=== PATIENT | female | born 1980 | race American Indian/Alaskan Native ===

== ENCOUNTER 2017-04-21 23:26 | Emergency (ER) | payer MEDICAID ==
[2017-04-21 23:47] VITALS: BP 149/80
[2017-04-22] MEDS ORDERED: MOTRIN PO ONE ×2 (01:20)
[2017-04-22 01:40] LABS: Bilirubin,Urine NEG (Negative); Blood,Urine NEG (Negative); Ketones,Urine NEG (Negative); Leukocyte Esterase,Urine NEG (Negative); Nitrite,Urine NEG (Negative); Protein,Urine <15 mg/dL mg/dL (Negative); Urobilinogen,Urine < 2.0 mg/dL (<2.0); WBC,Urine < 1.0 /HPF (0.0-6.0)
[2017-04-22 02:17] LABS: Basophils % (Auto) 0.4 % (0.0-1.8); Eosinophils % (Auto) 0.3 % (0.0-4.3); Hematocrit 33.6 % (30.3-42.9); Hemoglobin 10.6 gm/dl (10.1-14.3); Mean Corpuscular HGB Conc 32 % (30-34); Mean Corpuscular Volume 72 fl (79-97); Platelet Count 261 K/mm3 (140-440); Red Blood Count 4.64 M/mm3 (3.65-5.03); Red Cell Distribution Width 17.3 % (13.2-15.2); White Blood Count 10.6 K/mm3 (4.5-11.0)
[2017-04-22 02:22] LABS: Mean Corpuscular Hemoglobin 23 pg (28-32)
[2017-04-22 02:35] LABS: Alanine Aminotransferase 17 units/L (7-56); Albumin 4.6 g/dL (3.9-5); Albumin/Globulin Ratio 1.4 %; Alkaline Phosphatase 51 units/L (35-129); Anion Gap 17 mmol/L; BUN/Creatinine Ratio 11; Blood Urea Nitrogen 9 mg/dL (7-17); Calcium 9.4 mg/dL (8.4-10.2); Carbon Dioxide 24 mmol/L (22-30); Glucose 93 mg/dL (65-100); Lipase 26 units/L (13-60); Sodium 139 mmol/L (137-145)
== END 2017-04-22 01:45 | disposition left against medical advice (07) ==
LOC: ED 23:26
DX: R10.9 Unspecified abdominal pain (principal); Z53.21 Procedure and treatment not carried out due to patient leaving prior to being seen by health care provider
CPT/HCPCS: 36415; 80053; 81001; 83690; 84703; 85025

== ENCOUNTER 2017-05-18 16:47 | Inpatient (IN) | payer MEDICAID ==
[2017-05-18 17:58] LABS: Basophils % (Auto) 0.6 % (0.0-1.8); Eosinophils % (Auto) 0.1 % (0.0-4.3); Hematocrit 34.6 % (30.3-42.9); Hemoglobin 10.9 gm/dl (10.1-14.3); Mean Corpuscular HGB Conc 32 % (30-34); Mean Corpuscular Volume 72 fl (79-97); Platelet Count 265 K/mm3 (140-440); Red Blood Count 4.83 M/mm3 (3.65-5.03); Red Cell Distribution Width 17.5 % (13.2-15.2); White Blood Count 8.7 K/mm3 (4.5-11.0)
[2017-05-18 17:59] LABS: Mean Corpuscular Hemoglobin 23 pg (28-32)
[2017-05-18 18:33] LABS: Mucus,Urine FEW /HPF
[2017-05-18 18:42] LABS: Bilirubin,Urine NEG (Negative); Blood,Urine LG (Negative); Ketones,Urine 20 mg/dL (Negative); Leukocyte Esterase,Urine NEG (Negative); Nitrite,Urine NEG (Negative); Urobilinogen,Urine < 2.0 mg/dL (<2.0)
[2017-05-18] MEDS ORDERED: DILAUDID IV ONE (19:17)
[2017-05-18] MEDS ORDERED: ZOFRAN IV ONE (19:17)
[2017-05-18] MEDS ORDERED: NACL 0.9% 1000 ML 1,000 ML IV ONE ×2 (19:17→23:23)
--- NOTE | 2017-05-18 19:21 | Emergency Department Report ---
ED Female HPI - General Chief complaint: Abdominal Pain Stated complaint: PELVIC PAIN Time Seen by Provider: 05/18/17 19:07 Source: patient, old records reviewed Mode of arrival: Wheelchair Limitations: No Limitations - History of Present Illness Initial comments: 36 year old female with a past medical history a right-sided ectopic requiring right salpingectomy in the past presents to the hospital with complaints of sudden onset left lower quadrant pain. Patient states she had an IUD placed 1- 2 weeks ago. She has sexual intercourse just prior to IUD placement as well as after IUD placement. Patient has had vaginal spotting requiring one panty liner per day since IUD was placed. 2 days ago patient developed left lower quadrant discomfort and therefore her and her fianc removed the IUD. Patient has sudden onset of sharp pain today while shopping has continued vaginal spotting. Symptoms feel similar to previous ectopic. Pain rated moderate to severe in intensity, constant, worse with palpation and movement. No alleviating factors reported. The [employer] doctors are [place] affiliated Patient was here on April 22 for lower abdominal pain. Serum hCG was negative at that time. Patient left before M.D. evaluation - Related Data Allergies Allergy/AdvReac Type Severity Reaction Status Date / Time morphine Allergy Hives Verified 04/22/17 01:06 Penicillins Allergy Hives Verified 04/22/17 01:06 ED Review of Systems ROS: Stated complaint: PELVIC PAIN Other details as noted in HPI Comment: All other systems reviewed and negative Other: Constitutional: No fevers chills Eyes: No eye pain visual changes ENT: No ear pain or throat pain Neck: Denies pain Respiratory: Denies cough wheezing shortness of breath Cardiovascular: Denies chest pain, palpitations, syncope GI: As per HPI : Denies dysuria Musculoskeletal: Pain radiates to lower back Skin: Denies rash, lesions, erythema Neurologic: Denies headache, numbness, weakness Psychiatric: Denies suicidal ideation, hallucinations ED Past Medical Hx - Past Medical History Hx Seizures: Yes - Surgical History Past Surgical History?: No Additional Surgical History: Ectopic /Fallopian tube removal R side - Social History Smoking Status: Never Smoker Substance Use Type: None ED Physical Exam - General Limitations: No Limitations - Other Other exam information: General: No limitations, appears uncomfortable secondary to pain Head exam: Atraumatic, normocephalic Eyes exam: Normal appearance ENT: Moist mucous membrane, normal oropharynx Neck exam: Normal inspection, full range of motion, no meningismus nontender Respiratory exam: Clear to auscultation bilateral, no wheezes, rales, crackles Cardiovascular: Normal rate and rhythm, normal heart sounds Abdomen: Soft, nondistended, left lower quadrant tenderness, no rebound or guarding Extremity: Full range of motion normal inspection no deformity Back: Normal Inspection, full range of motion, no tenderness Neurologic: Alert, oriented x3, cranial nerves intact, no motor or sensory deficit Psychiatric: normal affect, normal mood Skin: Warm, dry, intact ED Course Vital Signs 05/18/17 05/18/17 05/18/17 17:25 19:17 19:30 Temperature 98.4 F Pulse Rate 86 81 Respiratory 22 21 Rate Blood Pressure 114/74 127/85 133/76 O2 Sat by Pulse 100 100 Oximetry 05/18/17 05/18/17 05/18/17 19:42 19:44 19:51 Temperature Pulse Rate Respiratory 20 20 Rate Blood Pressure 129/86 O2 Sat by Pulse 98 100 Oximetry 05/18/17 05/18/17 05/18/17 20:00 20:15 20:30 Temperature Pulse Rate 96 H 88 78 Respiratory 12 14 10 L Rate Blood Pressure 135/84 135/84 130/82 O2 Sat by Pulse 100 100 100 Oximetry 05/18/17 20:45 Temperature Pulse Rate 88 Respiratory 17 Rate Blood Pressure 135/84 O2 Sat by Pulse 100 Oximetry - Reevaluation(s) Reevaluation #1: 05/18/17 20:28 Patient received Dilaudid and Zofran for pain and while he is in normal saline. She does not require RhoGAM since she is Rh+ Reevaluation #2: 05/18/17 21:27 No support the patient developed itching without any signs of rash. Benadryl 50 mg ordered. Toradol ordered. Suspect allergy to Dilaudid given previous history of allergy to morphine - Consultations Consultation #1: 05/18/17 20:[address] Jarrett [employer] operations man. Will return to the hospital to take patient to the OR. This was discussed case with patient. ED Medical Decision Making - Lab Data Result diagrams: 05/18/17 17:39 Lab Results 05/18/17 05/18/17 05/18/17 Range/Units 17:39 17:39 17:42 WBC 8.7 (4.5-11.0) K/mm3 RBC 4.83 (3.65-5.03) M/mm3 Hgb 10.9 (10.1-14.3) gm/dl Hct 34.6 (30.3-42.9) % MCV 72 L (79-97) fl MCH 23 L (28-32) pg MCHC 32 (30-34) % RDW 17.5 H (13.2-15.2) % Plt Count 265 (140-440) K/mm3 Lymph % (Auto) 17.2 (13.4-35.0) % [place] % (Auto) 6.2 (0.0-7.3) % Eos % (Auto) 0.1 (0.0-4.3) % Baso % (Auto) 0.6 (0.0-1.8) % Lymph # 1.5 (1.2-5.4) K/mm3 [place] # 0.5 (0.0-0.8) K/mm3 Eos # 0.0 (0.0-0.4) K/mm3 Baso # 0.1 (0.0-0.1) K/mm3 Seg Neutrophils % 75.9 H (40.0-70.0) % Seg Neutrophils # 6.6 (1.8-7.7) K/mm3 HCG, Quant 9404 H (0-4) mIU/mL Urine Color (Yellow) Urine Turbidity (Clear) Urine pH (5.0-7.0) Ur Specific [place] (1.003-1.030) Urine Protein (Negative) mg/dL Urine Glucose (UA) (Negative) mg/dL Urine Ketones (Negative) mg/dL Urine Blood (Negative) Urine Nitrite (Negative) Ur Reducing Substances Urine Bilirubin (Negative) Urine Ictotest Urine Urobilinogen (<2.0) mg/dL Ur Leukocyte Esterase (Negative) Urine WBC (Auto) (0.0-6.0) /HPF Urine RBC (Auto) (0.0-6.0) /HPF U Epithel Cells (Auto) (0-13.0) /HPF Urine Mucus /HPF Blood Type B POSITIVE Antibody Screen Negative 05/18/17 Range/Units 18:00 WBC (4.5-11.0) K/mm3 RBC (3.65-5.03) M/mm3 Hgb (10.1-14.3) gm/dl Hct (30.3-42.9) % MCV (79-97) fl MCH (28-32) pg MCHC (30-34) % RDW (13.2-15.2) % Plt Count (140-440) K/mm3 Lymph % (Auto) (13.4-35.0) % [place] % (Auto) (0.0-7.3) % Eos % (Auto) (0.0-4.3) % Baso % (Auto) (0.0-1.8) % Lymph # (1.2-5.4) K/mm3 [place] # (0.0-0.8) K/mm3 Eos # (0.0-0.4) K/mm3 Baso # (0.0-0.1) K/mm3 Seg Neutrophils % (40.0-70.0) % Seg Neutrophils # (1.8-7.7) K/mm3 HCG, Quant (0-4) mIU/mL Urine Color Yellow (Yellow) Urine Turbidity Clear (Clear) Urine pH 6.0 (5.0-7.0) Ur Specific [place] 1.014 (1.003-1.030) Urine Protein 30 mg/dl (Negative) mg/dL Urine Glucose (UA) Neg (Negative) mg/dL Urine Ketones 20 (Negative) mg/dL Urine Blood Lg (Negative) Urine Nitrite Neg (Negative) Ur Reducing Substances Not Reportable Urine Bilirubin Neg (Negative) Urine Ictotest Not Reportable Urine Urobilinogen < 2.0 (<2.0) mg/dL Ur Leukocyte Esterase Neg (Negative) Urine WBC (Auto) 4.0 (0.0-6.0) /HPF Urine RBC (Auto) 14.0 (0.0-6.0) /HPF U Epithel Cells (Auto) 1.0 (0-13.0) /HPF Urine Mucus Few /HPF Blood Type Antibody Screen - Radiology Data Radiology results: report reviewed Transvaginal /pelvic ultrasound: Left adnexal ectopic 5 weeks 6 days with heart. Trace free fluid in cul-de-sac - Medical Decision Making Patient requires admission to the hospital in OR treatment for left sided ectopic . 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 Mezzier - Differential Diagnosis ectopic, ruptured ectopic, , threatened miscarriage, miscarriage Critical Care Time: No Critical care attestation.: If time is entered above; I have spent that time in minutes in the direct care of this critically ill patient, excluding procedure time. ED Disposition Clinical Impression: Ectopic of ovary Qualifiers: Intrauterine status: without intrauterine Laterality: left Qualified Code(s): O00.202 - Left ovarian without intrauterine Disposition: OP ADMIT IP TO THIS HOSP Is pt being admited?: Yes Condition: Stable Referrals: PRIMARY CARE, [Primary Care Provider] - 3-5 Days Time of Disposition: 20:29 (DR Jarrett/[employer] TECHNICIAN)
--- NOTE | 2017-05-18 19:30 | Ultrasound Report ---
FINAL REPORT EXAM: US OB TRANSVAGINAL HISTORY: Pelvic Pain , , LMP 05/10/2017 TECHNIQUE: Transvesical and endovaginal obstetrical sonographic imaging Comparison: None FINDINGS: Images demonstrate uterus to measure 12.1 x 7.7 x 7 centimeters. Endometrial stripe is thickened at at least 1.7 centimeters. There is no intrauterine gestation identified. Right ovary measures 2.2 x 1.4 x 1.6 centimeters with normal color flow and unremarkable appearance. Left ovary measures 3.1 x 1.8 x 2.1 centimeters with normal color flow and an adjacent ectopic . There is a gestational sac and pole in the left adnexal. heart rate measures 120 beats per minute. By crown-rump length, estimated gestational age is 5 weeks 6 days. A yolk sac is identified. There is trace free fluid identified. IMPRESSION: Critical result. Findings called to and discussed with referring clinician, Dr. Corado, on 05/18/2017 at 1923 hours. Live left adnexal ectopic at 5 weeks 6 days by crown-rump length. Normal appearing ovaries. Trace free cul-de-sac fluid.
--- NOTE | 2017-05-18 19:33 | Ultrasound Report ---
FINAL REPORT EXAM: US OB < = 14 WEEKS FETUS HISTORY: Pelvic Pain TECHNIQUE: Transvesical and endovaginal obstetrical sonographic imaging Comparison: None FINDINGS: Images demonstrate uterus to measure 12.1 x 7.7 x 7 centimeters. Endometrial stripe is thickened at at least 1.7 centimeters. There is no intrauterine gestation identified. Right ovary measures 2.2 x 1.4 x 1.6 centimeters with normal color flow and unremarkable appearance. Left ovary measures 3.1 x 1.8 x 2.1 centimeters with normal color flow and an adjacent ectopic . There is a gestational sac and pole in the left adnexal. heart rate measures 120 beats per minute. By crown-rump length, estimated gestational age is 5 weeks 6 days. A yolk sac is identified. There is trace free fluid identified. IMPRESSION: Critical result. Findings called to and discussed with referring clinician, Dr. Corado, on 05/18/2017 at 1923 hours. Live left adnexal ectopic at 5 weeks 6 days by crown-rump length. Normal appearing ovaries. Trace free cul-de-sac fluid.
[2017-05-18] MEDS ORDERED: TORADOL IV ONE (21:18)
[2017-05-18] MEDS ORDERED: BENADRYL IV ONE (21:18)
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
[2017-05-18] MEDS ORDERED: GARAMYCIN IV SCH (22:45)
[2017-05-18] MEDS ORDERED: CLEOCIN 600 MG/50 mL 600 MG/50 ML BAG IV NR (23:00)
[2017-05-18] MEDS ORDERED: MARCAINE 0.5% 30 ML INFILTRATI ONE (23:00)
[2017-05-18] MEDS ORDERED: NACL 0.9% 1000 ML 1,000 ML ONE (23:02)
[2017-05-18] MEDS ORDERED: DIPRIVAN 10 MG/ML IV ONE (23:13)
[2017-05-18] MEDS ORDERED: DILAUDID ONE (23:13)
[2017-05-18] MEDS ORDERED: XYLOCAINE MPF 2% ONE (23:14)
[2017-05-18] MEDS ORDERED: MARCAINE 0.5% INFILTRATI ONE (23:20)
[2017-05-18] MEDS ORDERED: NACL 0.9% IR ONE ×2 (23:20)
[2017-05-18] MEDS ORDERED: VERSED ONE (23:21)
--- NOTE | 2017-05-18 23:21 | Anesthesia Day of Surgery ---
Anesthesia Day of Surgery - Day of Surgery Patient Examined: Yes Patient H&P Reviewed: Yes Patient is NPO: Yes
--- NOTE | 2017-05-18 23:21 | Anesthesia Consultation ---
Anesthesia Consult and Med Hx Date of service: 05/18/17 - Airway Anesthetic Teeth Evaluation: Good ROM Head & Neck: Adequate Mental/Hyoid Distance: Adequate Mallampati Class: Class II Intubation Access Assessment: Probably Good - Pulmonary Exam CTA: Yes - Cardiac Exam Cardiac Exam: RRR - Pre-Operative Health Status ASA Pre-Surgery Classification: ASA2 Proposed Anesthetic Plan: General - Pulmonary Hx Smoking: No Hx Asthma: No - Cardiovascular System Hx Hypertension: No - Central Nervous System Hx Seizures: Yes - Endocrine Hx Non-Insulin Dependent Diabetes: No
[2017-05-18] MEDS ORDERED: TORADOL IV PRN (23:22)
[2017-05-18] MEDS ORDERED: SUBLIMAZE IV PRN (23:22)
[2017-05-18] MEDS ORDERED: PEPCID IV ONE (23:22)
[2017-05-18] MEDS ORDERED: ZOFRAN ONE (23:30)
[2017-05-18] MEDS ORDERED: SUBLIMAZE ONE (23:34)
[2017-05-18] MEDS ORDERED: ZEMURON IV ONE (23:34)
[2017-05-19] MEDS ORDERED: GARAMYCIN/NS 120MG/100ML 120 MG/100 ML BAG IV ONE (00:05)
[2017-05-19] MEDS ORDERED: NACL 0.9% 1000 ML 1,000 ML ONE (00:36)
[2017-05-19] MEDS ORDERED: ZOFRAN ONE (00:39)
[2017-05-19] MEDS ORDERED: REGLAN PO PRN (01:07)
[2017-05-19] MEDS ORDERED: TYLENOL PO PRN (01:07)
--- NOTE | 2017-05-19 01:16 | Operative Report ---
Operative Report Operative Report: Date of procedure: 05/19/2017 Pre-operative diagnosis: Left ectopic Post-operative diagnosis: Same was hemoperitoneum Procedure name(s): Left laparoscopic salpingectomy Diagnostic laparoscopy Surgeon: Dr. Yuan date Director Reactor Projects: PIPE Anesthesia: Gen. endotracheal anesthesia EBL: 200 mL of hemoperitoneum evacuated from abdomen Urine output: 200 mL of clear urine out at the beginning of the procedure via straight catheterization Fluids: 1200 mL Findings: What appeared to be scarring on the surface of the uterus Normal ovaries bilaterally Approximately 200 mL of hemoperitoneum Left adnexal mass encompassing the early the entire left fallopian tube extending from the fimbriated and to the proximal portion near uterus Absent right fallopian tube Indications: Patient presented with left pelvic pain for several days. Patient with previous history of right ectopic and status post right salpingectomy. Patient stated that pain was similar. Evaluation via sonogram revealed left ectopic approximately 5 weeks and 6/7 days with cardiac activity noted. Minimal fluid was also noted on sonogram. Decision was made to proceed with operative treatment of ectopic as patient did not make criteria for treatment with methotrexate. All risks benefits and alternatives were discussed with the patient consents were signed and placed on the chart. Procedure: Patient was taken to the operating room where she was then placed in general endotracheal anesthesia in dorsal lithotomy position. Patient's legs was then placed in the Emmanuel stirrups. Patient was then prepped and draped in normal sterile fashion. After timeout had been performed straight catheterization was performed. Sterile speculum was placed inside of the vagina. Anterior lip of the cervix was grasped with a tenaculum and the uterus was sounded to approximately 8 cm. The uterus was dilated to allow the passage of the HUMI uterine manipulator. Attention was then turned to the umbilicus and which an incision was made to allow passage of a 5 mm trocar. The 5 mm trocar was placed under direct visualization with the laparoscope. 2 other ports were placed under direct visualization a 5 mm and an additional 8 mm trocar was pulled placed. The LigaSure device was used to cut and cauterize the left ectopic and left salpingectomy was performed.. The 8 mm incision was then extended to a lower passage of the 12 mm trocar. The Endo Catch bag was then placed at this time specimens placed inside the Endo Catch bag. Specimen was removed from the abdomen. The pelvis was then copiously irrigated with all clots and debris removed from the pelvis. Excellent hemostasis was noted. The skin was closed with 2-0 Vicryl in the fascial layer of the 12 mm incision. And 4-0 Monocryl and the skin layer of the 12 mm incision. The other 25 mm incisions were reapproximated using 4-0 Monocryl. Surgical glue was placed on all incisions to reapproximate the skin edges. Excellent hemostasis was noted. Marcaine without epi was injected in all incisions. Attention was then turned to the vagina in which the HUMI manipulator was removed without difficulty. Minimal bleeding was noted. Patient tolerated procedure well sponge lap and needle counts were all correct 2. Patient was taken to the recovery room awake and in stable condition.
[2017-05-19] MEDS ORDERED: LACTATED RINGERS 1,000 ML IV SCH (02:00)
[2017-05-19] MEDS: CLEOCIN 600 MG/50 mL 600 MG/50 ML BAG IV SCH ×2 (02:42→11:05)
[2017-05-19] MEDS: NORCO 5/325 PO PRN ×3 (02:42→18:16)
[2017-05-19] MEDS: TORADOL IV SCH ×2 (05:16→14:00)
[2017-05-19] MEDS: GARAMYCIN/NS 80 MG/100 ML 100 ML IV SCH ×2 (08:16→15:55)
[2017-05-19 12:41] LABS: Hemoglobin 9.6 gm/dl (10.1-14.3)
[2017-05-19] MEDS ORDERED: TORADOL PO PRN (18:57)
--- NOTE | 2017-05-19 19:03 | Event Note ---
Date: 05/19/17 Patient lying in bed with complaints of postop pain. Discuss of her adequate hematocrit resulted at 30%. Patient states she desires not to take narcotic discussed makes her dizzy. We'll switch patient to be up Toradol. Discussed patient on normal postoperative pain. Patient states in her head she should stay in hospital until she does not have any more pain. Discuss with patient that she will be discharge with some pain have adequate pain medicine at home. Patient without any nausea. Patient ate regular diet and was prepared by her significant other. All this information given to patient
--- NOTE | 2017-05-19 22:14 | Discharge Summary ---
Providers - Providers Date of Admission: 05/19/17 08:08 Date of discharge: 05/20/17 Attending physician: CHUNG LIM Primary care physician: [employer] Hospitalization Reason for admission: ectopic Condition: Good Pertinent studies: Pelvic ultrasound Procedures: Operative laparoscopy with left salpingectomy Hospital course: Please see H&P for details. Patient underwent the operative eye laparoscopy with left salpingectomy without complications.. Her post operative course was benign she was afebrile throughout. Patient postoperative day hematocrit was in an acceptable range. Patient had no orthostatic symptoms. Patient was tolerating regular diet and voiding without difficulty at time of discharge. Patient incision was healing well without evidence of infection. Disposition: DC-01 TO HOME OR SELFCARE - Discharge Diagnoses (1) Ectopic without intrauterine Status: Acute Qualifiers: Location of ectopic : tubal Laterality: left Qualified Code(s): O00.102 - Left tubal without intrauterine Core Measure Documentation - Palliative Care Palliative Care/ Comfort Measures: Not Applicable - Core Measures Any of the following diagnoses?: none Exam - Constitutional Vitals: Temp Pulse Resp BP Pulse Ox 98.8 F 91 H 20 103/56 100 05/19/17 16:39 05/19/17 16:39 05/19/17 16:39 05/19/17 16:39 05/19/17 08:09 General appearance: Present: no acute distress - Respiratory Respiratory effort: normal - Cardiovascular Rhythm: regular - Extremities Extremities: no ischemia Peripheral Pulses: abnormal - Abdominal General gastrointestinal: Present: soft, tender (appropriately), distended Female genitourinary: Present: deferred - Integumentary Integumentary: Present: clear, warm, dry - Psychiatric Psychiatric: appropriate mood/affect, intact judgment & insight Plan Diet: regular Wound: open to air Additional Instructions: Patient office for fever chills nausea vomiting or pain uncontrolled by pain relief. Patient call and make an appointment in 1 week follow-up Follow up with: PRIMARY CARE, [Primary Care Provider] - 3-5 Days Prescriptions: Ketorolac [Toradol] 10 mg PO Q6H PRN #30 tablet PRN Reason: Pain
[2017-05-19] MEDS: MOTRIN PO PRN (22:15)
[2017-05-20] MEDS: MOTRIN PO PRN (08:19)
[2017-05-20 09:18] VITALS: BP 117/70
== END 2017-05-20 12:10 | disposition home or self-care (01) | DRG 777 ==
LOC: ED 16:47 → OR 23:40 → OB 05-19 01:07 → OBSVTOIN 05-19 08:08
PROVIDERS: ADMIT Obstetrics & Gynecology; ATTEND Obstetrics & Gynecology
PROC: 10T24ZZ Resection of Products of Conception, Ectopic, Percutaneous Endoscopic Approach (ICD-10-PCS; principal; 2017-05-19)
PROC: 0UT64ZZ Resection of Left Fallopian Tube, Percutaneous Endoscopic Approach (ICD-10-PCS; 2017-05-19)
DX: O00.102 Left tubal pregnancy without intrauterine pregnancy (principal); K66.1 Hemoperitoneum; Z88.5 Allergy status to narcotic agent; Z88.0 Allergy status to penicillin; Z90.79 Acquired absence of other genital organ(s); Z88.8 Allergy status to other drugs, medicaments and biological substances
CPT/HCPCS: 36415; 76801; 76817; 81001; 84702; 85014; 85018; 85025; 86850; 86900; 86901; 88305; 96361; 96374; 96375; A4217; J1170; J1200; J1580; J1885; J2250; J2405; J2704; J3010; J7030; J7120

== ENCOUNTER 2017-08-05 00:26 | Emergency (ER) | payer MEDICAID ==
[2017-08-05 01:03] VITALS: BP 110/66
[2017-08-05 01:57] LABS: Basophils % (Auto) 0.5 % (0.0-1.8); Eosinophils # (Auto) 0.1 K/mm3 (0.0-0.4); Eosinophils % (Auto) 0.8 % (0.0-4.3); Hematocrit 32.4 % (30.3-42.9); Hemoglobin 10.3 gm/dl (10.1-14.3); Lymphocytes # (Auto) 2.7 K/mm3 (1.2-5.4); Lymphocytes % (Auto) 28.7 % (13.4-35.0); Mean Corpuscular HGB Conc 32 % (30-34); Monocytes # (Auto) 0.8 K/mm3 (0.0-0.8); Monocytes % (Auto) 8.2 % (0.0-7.3); Platelet Count 249 K/mm3 (140-440); Red Blood Count 4.68 M/mm3 (3.65-5.03); Red Cell Distribution Width 15.9 % (13.2-15.2)
[2017-08-05 02:00] LABS: Alanine Aminotransferase 15 units/L (7-56); Albumin 4.3 g/dL (3.9-5); BUN/Creatinine Ratio 9; Blood Urea Nitrogen 8 mg/dL (7-17); Calcium 9.8 mg/dL (8.4-10.2); Hemolysis Index 1; Lipase 28 units/L (13-60)
[2017-08-05 02:03] LABS: Mean Corpuscular Hemoglobin 22 pg (28-32); Mean Corpuscular Volume 69 fl (79-97)
[2017-08-05 02:06] LABS: Bilirubin,Urine NEG (Negative); Blood,Urine NEG (Negative); Color,Urine Red (Yellow); Nitrite,Urine NEG (Negative); Protein,Urine <15 mg/dL mg/dL (Negative); Urobilinogen,Urine < 2.0 mg/dL (<2.0); WBC,Urine < 1.0 /HPF (0.0-6.0)
[2017-08-05] MEDS ORDERED: ASPIRIN ONE (07:26)
== END 2017-08-05 05:55 | disposition left against medical advice (07) ==
LOC: ED 00:26
DX: R10.9 Unspecified abdominal pain (principal); Z53.21 Procedure and treatment not carried out due to patient leaving prior to being seen by health care provider
CPT/HCPCS: 36415; 80053; 81001; 83690; 84703; 85025

== ENCOUNTER 2019-11-18 18:06 | Emergency (ER) | payer MEDICAID, MEDICARE ==
[2019-11-18] MEDS ORDERED: KETOROLAC 30 MG/1 ML INJ IV ONE (18:50)
--- NOTE | 2019-11-18 18:52 | Emergency Department Report ---
ED Chest Pain HPI - General Chief Complaint: Chest Pain Stated Complaint: CHEST PAIN Time Seen by Provider: 11/18/19 18:35 Source: patient Mode of arrival: Stretcher Limitations: No Limitations - History of Present Illness Initial Comments: 38-year-old -[place] female presents to the emergency department with a complaint of a sharp pain in the left chest/left breast that started just prior to presentation. Patient says that she began feeling very warm and turned up her air conditioning. She then felt nauseated but did not vomit and then had an upset stomach with an episode of diarrhea. However the chest pain remained constant throughout these other symptoms. She denies any shortness of breath, fever. She has not taken anything for symptoms prior to presentation. No recent travel or sick contacts at home. She has not taken anything for her symptoms prior to presentation. She has a past medical history of seizures and previous fibroids. Severity scale (0 -10): 10 - Related Data Previous Rx's Medication Instructions Recorded Last Taken Type Ketorolac [Toradol] 10 mg PO Q6H PRN #30 tablet 05/19/17 Unknown Rx Ibuprofen [Motrin 600 MG tab] 600 mg PO Q8H PRN #20 tablet 11/18/19 Unknown Rx Allergies Allergy/AdvReac Type Severity Reaction Status Date / Time hydromorphone [From Dilaudid] Allergy Itching Verified 05/18/17 22:26 morphine Allergy Hives Verified 04/22/17 01:06 Penicillins Allergy Hives Verified 04/22/17 01:06 Heart Score - HEART Score History: Slightly suspicious EKG: Normal Age: < 45 Risk factors: No known risk factors Troponin: < normal limit HEART Score: 0 - Critical Actions Critical Actions: 0-3 pts:0.9-1.7%risk of adverse cardiac event.Candidate for catherine tuttle ED Review of Systems ROS: Stated complaint: CHEST PAIN Other details as noted in HPI Comment: All other systems reviewed and negative Constitutional: denies: chills, fever Eyes: denies: eye pain, vision change ENT: denies: ear pain, throat pain Respiratory: denies: cough, shortness of breath Cardiovascular: chest pain. denies: palpitations Gastrointestinal: nausea, diarrhea. denies: vomiting Genitourinary: denies: dysuria, discharge Musculoskeletal: denies: back pain, arthralgia Skin: denies: rash, lesions Neurological: denies: headache, weakness ED Past Medical Hx - Past Medical History Previous Medical History?: Yes Hx Hypertension: No Hx Congestive Heart Failure: No Hx Diabetes: No Hx Seizures: Yes Hx Asthma: No Hx COPD: No - Surgical History Past Surgical History?: No Additional Surgical History: Ectopic /Fallopian tube removal R side - Social History Smoking Status: Never Smoker Substance Use Type: None - Medications Home Medications: Home Medications Medication Instructions Recorded Confirmed Last Taken Type Ketorolac [Toradol] 10 mg PO Q6H PRN #30 tablet 05/19/17 Unknown Rx Ibuprofen [Motrin 600 MG tab] 600 mg PO Q8H PRN #20 tablet 11/18/19 Unknown Rx ED Physical Exam - General Limitations: No Limitations - Other Other exam information: GENERAL: The patient is well-developed well-nourished. HENT: Normocephalic. Atraumatic. Patient has moist mucous membranes. EYES: Extraocular motions are intact. NECK: Supple. Trachea is midline. CHEST/LUNGS: Clear to auscultation. There is no respiratory distress noted. Chest pain is not reproducible to palpation of the chest wall. HEART/CARDIOVASCULAR: Regular. There is no tachycardia. There is no murmur. ABDOMEN: Abdomen is soft, nontender. Patient has normal bowel sounds. SKIN: Skin is warm and dry. NEURO: The patient is awake, alert, and oriented. The patient is cooperative. The patient has no focal neurologic deficits. Normal speech. MUSCULOSKELETAL: There is no tenderness or deformity. There is no limitation range of motion. There is no evidence of acute injury. ED Course Vital Signs 11/18/19 11/18/19 18:29 22:04 Temperature 97.6 F Pulse Rate 96 H 83 Respiratory 16 19 Rate Blood Pressure 147/84 127/77 [Right] O2 Sat by Pulse 100 100 Oximetry - Reevaluation(s) Reevaluation #1: 11/18/19 19:55 I did a chest wall/breast examination with nurse Priscila at bedside for assistance and passenger brakeman. MARQUES score - Marques Score Age > 65: (0) No Aspirin use within the Past 7 Days: (0) No 3 or more CAD Risk Factors: (0) No 2 or more Angina events in past 24 hrs: (0) No Known CAD with more than 50% Stenosis: (0) No Elevated Cardiac Markers: (0) No ST Deviation Greater than 0.5mm: (0) No MARQUES Score: 0 ED Medical Decision Making - Lab Data Result diagrams: 11/18/19 18:40 11/18/19 18:40 - EKG Data -: EKG Interpreted by Me EKG shows normal: sinus rhythm, axis, intervals, QRS complexes, ST-T waves Rate: normal - EKG Data When compared to previous EKG there are: previous EKG unavailable Interpretation: normal EKG - Radiology Data Radiology results: report reviewed, image reviewed interpreted by me: Chest x-ray does not show any acute process. There are no pleural effusions, obvious pneumonia and there is no pneumothorax. CTA CHEST WITH IV CONTRAST INDICATION: Chest pain. TECHNIQUE: Axial CT images we re obtained through the chest after injection of 100 mL Omnipaque 350 IV contrast. 3 plane MIP reconstructions were produced. All CT scans at this location are performed using CT dose reduction for ALARA by means of automated exposure control. COMPARISON: None available. FINDINGS: Pulmonary Arteries: No pulmonary emboli. Lungs: No significant abnormality. Trachea and Bronchi: No significant abnormality. Heart and Pericardium: No significant abnormality. Vasculature: No significant abnormality. Lymphatics: No lymphadenopathy. Additional Findings: None. Upper Abdomen: No acute findings. Skeletal Structures: No significant osseous abnormality. IMPRESSION: 1. No CT evidence for pulmonary embolism. 2. No acute findings. - Medical Decision Making This patient presents to the emergency department with some acute left-sided chest pain, over the left breast, that started earlier this evening. On examination her heart and lungs are normal to auscultation. I was unable to reproduce the patient's pain to palpation but there was no obvious deformity including any signs of any breast abscess, any crepitus or cellulitis. An EKG was done that does not show any morphology consistent with ST elevation [place] or any dysrhythmia. Chest x-ray did not show any pneumonia, pleural effusions, pneumothorax, focal consolidation, or any other acute process. Patient's labs have been unremarkable including negative troponins x2. Patient did have a CT angiography of the chest performed secondary to her significant level of discomfort but it resulted as no evidence for pulmonary embolism or any other acute findings. Patient was given a dose of IV analgesia with great improvement of her discomfort. Her vital signs been stable throughout her ED course. The patient has a low heart and MARQUES score. For all these reasons the patient will be discharged home. Her contact information has been sent to the [facility] and someone from their office should be contacting her shortly for close outpatient follow-up as part of our lower risk chest pain protocol. The patient will return to the emergency department with any worsening of her symptoms or any acute distress. Critical Care Time: No Critical care attestation.: If time is entered above; I have spent that time in minutes in the direct care of this critically ill patient, excluding procedure time. ED Disposition Clinical Impression: Chest pain Qualifiers: Chest pain type: unspecified Qualified Code(s): R07.9 - Chest pain, unspecified Disposition: TO HOME OR SELFCARE Is pt being admited?: No Condition: Stable Instructions: Chest Pain (ED) Additional Instructions: I am sending your contact information to [facility], a local cardiology group, and someone from their office should be contacting you shortly for close outpatient follow-up. Return to the emergency department with any worsening of your symptoms or any acute distress. Prescriptions: Ibuprofen [Motrin 600 MG tab] 600 mg PO Q8H PRN #20 tablet PRN Reason: Pain Referrals: PRIMARY CARE, [Primary Care Provider] - 2-3 Days JOSE MUSE MD [Staff Physician] - 2-3 Days Time of Disposition: 22:32
--- NOTE | 2019-11-18 19:13 | XRay Report ---
CHEST 1 VIEW 11/18/2019 6:49 PM INDICATION / CLINICAL INFORMATION: Chest pain. COMPARISON: None available. FINDINGS: SUPPORT DEVICES: None. HEART / MEDIASTINUM: Normal heart size. Atherosclerosis in the thoracic aorta. LUNGS / PLEURA: No significant pulmonary or pleural abnormality. No pneumothorax. ADDITIONAL FINDINGS: No significant additional findings. IMPRESSION: 1. No acute findings. Signer Name: Nicola Mistry MD Signed: 11/18/2019 7:09 PM Workstation Name: [id number]
[2019-11-18 19:38] LABS: Basophils % (Auto) 0.4 % (0.0-1.8); Eosinophils % (Auto) 0.4 % (0.0-4.3); Hematocrit 37.4 % (30.3-42.9); Hemoglobin 11.7 gm/dl (10.1-14.3); INR 0.99 (0.87-1.13); Lymphocytes # (Auto) 1.9 K/mm3 (1.2-5.4); Lymphocytes % (Auto) 15.1 % (13.4-35.0); Mean Corpuscular HGB Conc 31 % (30-34); Mean Corpuscular Volume 77 fl (79-97); Monocytes # (Auto) 0.7 K/mm3 (0.0-0.8); Monocytes % (Auto) 5.2 % (0.0-7.3); Platelet Count 263 K/mm3 (140-440); Red Blood Count 4.84 M/mm3 (3.65-5.03); Red Cell Distribution Width 14.8 % (13.2-15.2)
[2019-11-18 19:42] LABS: Bacteria,Urine 1+ /HPF (Negative); Bilirubin,Urine NEG (Negative); Blood,Urine NEG (Negative); Color,Urine Straw (Yellow); Mucus,Urine FEW /HPF; Protein,Urine <15 mg/dL mg/dL (Negative); Urobilinogen,Urine < 2.0 mg/dL (<2.0)
[2019-11-18 19:46] LABS: BUN/Creatinine Ratio 14; Blood Urea Nitrogen 11 mg/dL (7-17); Calcium 9.5 mg/dL (8.4-10.2); Hemolysis Index 5
[2019-11-18] MEDS ORDERED: ONDANSETRON 4 MG/2 ML INJ IV ONE (19:49)
[2019-11-18] MEDS ORDERED: fentaNYL 100 MCG/2 ML INJ IV ONE (19:49)
[2019-11-18] MEDS ORDERED: diphenhydrAMINE 50 MG/ML VIAL IV ONE (19:49)
[2019-11-18] MEDS ORDERED: fentaNYL 100 MCG/2 ML INJ ONE (19:52)
[2019-11-18] MEDS ORDERED: diphenhydrAMINE 50 MG/ML VIAL ONE (19:52)
[2019-11-18] MEDS ORDERED: ONDANSETRON 4 MG/2 ML INJ ONE (19:52)
--- NOTE | 2019-11-18 20:51 | Cat Scan Report ---
CTA CHEST WITH IV CONTRAST INDICATION: Chest pain. TECHNIQUE: Axial CT images were obtained through the chest after injection of 100 mL Omnipaque 350 IV contrast. 3 plane MIP reconstructions were produced. All CT scans at this location are performed using CT dose reduction for ALARA by means of automated exposure control. COMPARISON: None available. FINDINGS: Pulmonary Arteries: No pulmonary emboli. Lungs: No significant abnormality. Trachea and Bronchi: No significant abnormality. Heart and Pericardium: No significant abnormality. Vasculature: No significant abnormality. Lymphatics: No lymphadenopathy. Additional Findings: None. Upper Abdomen: No acute findings. Skeletal Structures: No significant osseous abnormality. IMPRESSION: 1. No CT evidence for pulmonary embolism. 2. No acute findings. Signer Name: Nicola Mistry MD Signed: 11/18/2019 8:47 PM Workstation Name: [id number]
[2019-11-18 22:05] VITALS: BP 127/77
== END 2019-11-18 23:54 | disposition home or self-care (01) ==
LOC: ED 18:06
DX: R07.9 Chest pain, unspecified (principal); Z79.899 Other long term (current) drug therapy; Z88.0 Allergy status to penicillin; Z88.6 Allergy status to analgesic agent; Z88.8 Allergy status to other drugs, medicaments and biological substances; Z86.69 Personal history of other diseases of the nervous system and sense organs; Z98.890 Other specified postprocedural states
CPT/HCPCS: 36415; 71045; 71275; 80048; 81001; 84484; 85025; 85379; 85610; 93005; 96374; 96375; 99285; J1200; J1885; J2405; J3010; Q9967

== ENCOUNTER 2019-12-21 00:44 | Emergency (ER) | payer MEDICARE ==
[2019-12-21] MEDS ORDERED: fentaNYL 100 MCG/2 ML INJ IV ONE (02:49)
--- NOTE | 2019-12-21 02:55 | Emergency Department Report ---
ED Chest Pain HPI - General Chief Complaint: Chest Pain Stated Complaint: CHEST PAIN Time Seen by Provider: 12/21/19 02:43 Source: patient, EMS Mode of arrival: Wheelchair Limitations: No Limitations - History of Present Illness Initial Comments: 39 yo F with history of seizure disorder presents to ED with complaint of chest pain. Patient states pain is left-sided, nonradiating, sharp in nature. Onset of pain while patient was laying in bed watching TV. Patient denies any shortness of breath, fever, cough, leg pain or swelling. Patient states she was here for the exact same pain 1 month ago. At that time, patient had a CTA chest that was negative for PE. MD Complaint: chest pain -: During the night Onset: during rest Pain Location: left chest Pain Radiation: none Severity: severe Quality: sharp Consistency: constant Improves With: nothing Worsens With: nothing re: nausea. denies: vomting, diaphoresis, dyspnea Other Symptoms: denies: cough, fever, leg swelling - Related Data Previous Rx's Medication Instructions Recorded Last Taken Type Ketorolac [Toradol] 10 mg PO Q6H PRN #30 tablet 05/19/17 Unknown Rx Ibuprofen [Motrin 600 MG tab] 600 mg PO Q8H PRN #20 tablet 11/18/19 Unknown Rx Allergies Allergy/AdvReac Type Severity Reaction Status Date / Time acetaminophen [From Percocet] Allergy Unknown Verified 12/21/19 01:17 hydromorphone [From Dilaudid] Allergy Itching Verified 05/18/17 22:26 morphine Allergy Hives Verified 04/22/17 01:06 oxycodone [From Percocet] Allergy Unknown Verified 12/21/19 01:17 Penicillins Allergy Hives Verified 04/22/17 01:06 Heart Score - HEART Score History: Slightly suspicious EKG: Normal Age: < 45 Risk factors: No known risk factors Troponin: < normal limit HEART Score: 0 ED Review of Systems ROS: Stated complaint: CHEST PAIN Other details as noted in HPI Comment: All other systems reviewed and negative Constitutional: denies: chills, fever Respiratory: denies: cough, shortness of breath Cardiovascular: chest pain Gastrointestinal: nausea. denies: vomiting Musculoskeletal: other (denies leg pain or swelling) ED Past Medical Hx - Past Medical History Previous Medical History?: Yes Hx Hypertension: No Hx Congestive Heart Failure: No Hx Diabetes: No Hx Seizures: Yes Hx Asthma: No Hx COPD: No - Surgical History Past Surgical History?: No Additional Surgical History: Ectopic /Fallopian tube removal R side - Social History Smoking Status: Never Smoker Substance Use Type: None - Medications Home Medications: Home Medications Medication Instructions Recorded Confirmed Last Taken Type Ketorolac [Toradol] 10 mg PO Q6H PRN #30 tablet 05/19/17 Unknown Rx Ibuprofen [Motrin 600 MG tab] 600 mg PO Q8H PRN #20 tablet 11/18/19 Unknown Rx ED Physical Exam - General Limitations: No Limitations General appearance: alert, in no apparent distress - Head Head exam: Present: atraumatic, normocephalic - Eye Eye exam: Present: normal appearance, EOMI - ENT ENT exam: Present: mucous membranes moist - Neck Neck exam: Present: normal inspection - Respiratory Respiratory exam: Present: normal lung sounds bilaterally. Absent: respiratory distress, chest wall tenderness - Cardiovascular Cardiovascular Exam: Present: regular rate, normal rhythm - GI/Abdominal GI/Abdominal exam: Present: soft. Absent: distended, tenderness - Extremities Exam Extremities exam: Present: normal inspection. Absent: pedal edema, calf tenderness - Neurological Exam Neurological exam: Present: alert, oriented X3 - Psychiatric Psychiatric exam: Present: normal affect, normal mood - Skin Skin exam: Present: warm, dry, intact, normal color ED Course Vital Signs 12/21/19 12/21/19 12/21/19 01:11 03:17 03:32 Temperature 97.6 F Pulse Rate 83 Respiratory 19 18 Rate Blood Pressure 122/55 116/77 O2 Sat by Pulse 100 100 Oximetry FRANCHESKA score - Francheska Score Age > 65: (0) No Aspirin use within the Past 7 Days: (0) No 3 or more CAD Risk Factors: (0) No 2 or more Angina events in past 24 hrs: (0) No Known CAD with more than 50% Stenosis: (0) No Elevated Cardiac Markers: (0) No ST Deviation Greater than 0.5mm: (0) No FRANCHESKA Score: 0 ED Medical Decision Making - Lab Data Result diagrams: 12/21/19 03:01 12/21/19 03:01 - EKG Data -: EKG Interpreted by Or EKG shows normal: sinus rhythm, axis, intervals, QRS complexes, ST-T waves Rate: normal - EKG Data Interpretation: no acute changes - Radiology Data Radiology results: report reviewed, image reviewed - Medical Decision Making 39-year-old female with reported severe last sharp chest pain, onset tonight. Vital signs are normal. Patient reports exact same presentation 1 month ago. At that time patient underwent CTA of the chest which was negative for PE. Tonight, EKG is unremarkable, troponin is negative. Chest x-ray shows no acute findings. Patient given fentanyl and Benadryl, she states she is allergic to most other medications. She is feeling much better at this time and will be discharged home. Chest pain referral faxed to [facility] for urgent follow-up. Return precautions given. - Differential Diagnosis ACS, pneumothorax, pneumonia, costochondritis Critical care attestation.: If time is entered above; I have spent that time in minutes in the direct care of this critically ill patient, excluding procedure time. ED Disposition Clinical Impression: Acute chest pain Disposition: DC-01 TO HOME OR SELFCARE Is pt being admited?: No Condition: Stable Instructions: Chest Pain (ED) Referrals: PRIMARY MD STEPHENIE [Primary Care Provider] - 3-5 Days Time of Disposition: 04:31
[2019-12-21 03:26] LABS: Basophils # (Auto) 0.1 K/mm3 (0.0-0.1); Basophils % (Auto) 0.5 % (0.0-1.8); Eosinophils % (Auto) 0.1 % (0.0-4.3); Hematocrit 35.7 % (30.3-42.9); Hemoglobin 11.7 gm/dl (10.1-14.3); Lymphocytes # (Auto) 1.4 K/mm3 (1.2-5.4); Lymphocytes % (Auto) 12.1 % (13.4-35.0); Mean Corpuscular HGB Conc 33 % (30-34); Mean Corpuscular Volume 78 fl (79-97); Monocytes # (Auto) 0.7 K/mm3 (0.0-0.8); Monocytes % (Auto) 6.4 % (0.0-7.3); Platelet Count 245 K/mm3 (140-440); Red Cell Distribution Width 14.5 % (13.2-15.2)
[2019-12-21 03:35] LABS: INR 0.99 (0.87-1.13)
[2019-12-21 03:36] LABS: Partial Thromboplastin Time 24.6 Sec. (24.2-36.6)
[2019-12-21 03:43] LABS: BUN/Creatinine Ratio 9; Blood Urea Nitrogen 7 mg/dL (7-17); Calcium 9.2 mg/dL (8.4-10.2); Hemolysis Index 4
[2019-12-21] MEDS ORDERED: diphenhydrAMINE 25 MG CAP PO ONE (03:55)
--- NOTE | 2019-12-21 03:59 | XRay Report ---
CHEST 1 VIEW 3:49 AM INDICATION / CLINICAL INFORMATION: Chest pain, difficulty breathing and nausea. COMPARISON: 11/18/19. FINDINGS: SUPPORT DEVICES: None. HEART / MEDIASTINUM: The heart size and pulmonary vasculature are normal. The aorta is normal in [facility]. LUNGS / PLEURA: No significant pulmonary or pleural abnormality. No pneumothorax. ADDITIONAL FINDINGS: No significant additional findings. IMPRESSION: No acute abnormality or significant change. Signer Name: Jeremy Bauer MD Signed: 12/21/2019 3:55 AM Workstation Name: [id number]
[2019-12-21 05:17] VITALS: BP 116/77
== END 2019-12-21 04:45 | disposition home or self-care (01) ==
LOC: ED 00:44
DX: R07.89 Other chest pain (principal); Z86.69 Personal history of other diseases of the nervous system and sense organs; Z79.899 Other long term (current) drug therapy; Z88.0 Allergy status to penicillin; Z88.6 Allergy status to analgesic agent; Z88.8 Allergy status to other drugs, medicaments and biological substances
CPT/HCPCS: 36415; 71045; 80048; 84484; 84703; 85025; 85610; 85730; 93005; 96374; 99284; J3010

== ENCOUNTER 2021-01-23 13:18 | Emergency (ER) | payer MEDICARE | END 2021-01-23 19:00 | disposition left against medical advice (07) | LOC: ED 13:18 | DX: R06.02 Shortness of breath (principal); Z53.21 Procedure and treatment not carried out due to patient leaving prior to being seen by health care provider ==